=== PATIENT | female | born 1945 | race Caucasian/White ===

== ENCOUNTER → 2020-03-26 | Outpatient (CLI) | payer MEDICARE ==
[~2020-03-26] MED LIST: OMNIPAQUE 350 MG/ML, 100ML BOTTLE ONE
== END | disposition home or self-care (01) ==
LOC: CFH 12:55
PROVIDERS: ATTEND Family Medicine
DX: Z12.31 Encounter for screening mammogram for malignant neoplasm of breast (principal); K43.5 Parastomal hernia without obstruction or gangrene; N85.8 Other specified noninflammatory disorders of uterus; K56.600 Partial intestinal obstruction, unspecified as to cause; M47.816 Spondylosis without myelopathy or radiculopathy, lumbar region; Z93.3 Colostomy status
CPT/HCPCS: 74177; 77063; 77067; 82565; Q9967

== ENCOUNTER 2020-10-08 07:53 | Inpatient (IN) | payer MEDICARE ==
[~2020-10-08] VITALS: Ht 167.6 cm; Wt 106.4 kg
[2020-10-08] MEDS ORDERED: SODIUM CHLORIDE FLUSH 10ML SYR IVF ONE (08:30)
[2020-10-08 08:37] LABS: BASOPHILS % (AUTO) 0 % (0-1); EOSINOPHILS % (AUTO) 2 % (1-7); LYMPHOCYTES % (AUTO) 12 % (22-44); MEAN CORPUSCULAR HEMOGLOBIN 32.6 pg (27.0-34.8); MEAN PLATELET VOLUME 8.2 fL (7.4-10.4); MONOCYTES % (AUTO) 8 % (2-9); NEUTROPHILS % (AUTO) 77 % (42-75); PLATELET COUNT 225 x10^3/uL (130-400); RED BLOOD COUNT 4.38 x10^6/uL (3.82-5.3); RED CELL DISTRIBUTION WIDTH 12.9 % (9.6-15.2)
[2020-10-08 08:49] LABS: ALANINE AMINOTRANSFERASE 20 U/L (12-78); ALBUMIN 3.6 g/dL (3.4-5.0); ANION GAP 6 mmol/L (5-15); CHLORIDE 110 mmol/L (98-107); CREATININE 0.75 mg/dL (0.55-1.02)
[2020-10-08 08:50] LABS: MD NO
[2020-10-08 08:51] LABS: ALKALINE PHOSPHATASE 109 U/L (45-117); BILIRUBIN,TOTAL 0.6 mg/dL (0.2-1.0); TOTAL PROTEIN 6.9 g/dL (6.4-8.2)
[2020-10-08] MEDS ORDERED: SERTRALINE 50MG TABLET ONE (08:53)
[2020-10-08] MEDS: SERTRALINE 50MG TABLET PO SCH (08:55)
[2020-10-08] MEDS ORDERED: OMNIPAQUE 350 MG/ML, 100ML BOTTLE ONE (09:23)
[2020-10-08] MEDS ORDERED: ONDANSETRON ODT 4 MG PO PRN (12:00)
[2020-10-08] MEDS ORDERED: ACETAMINOPHEN 325 MG TABLET PO PRN (12:00)
[2020-10-08] MEDS ORDERED: HEPARIN 5,000 UNITS/ML, 1ML SQ SCH (12:00)
[2020-10-08] MEDS ORDERED: SODIUM CHLORIDE 0.9% 1,000 ML IV SCH (12:00)
[2020-10-08] MEDS ORDERED: ONDANSETRON 2MG/ML, 2ML IVPush PRN (12:00)
[2020-10-08] MEDS ORDERED: KETOROLAC 30 MG/1 ML IM PRN (12:00)
[2020-10-08] MEDS ORDERED: CHLORHEXIDINE 15 ML UDC ONE (12:51)
[2020-10-08] MEDS ORDERED: CHLORHEXIDINE 15 ML UDC PO ONE (13:00)
[2020-10-08 13:23] LABS: INTERNATIONAL NORMALIZED RATIO 0.97 (0.93-1.1); PROTHROMBIN TIME 10.4 Seconds (9.6-11.5)
[2020-10-08] MEDS ORDERED: FENTANYL PF 100 MCG/2ML ONE ×2 (13:43→14:32)
[2020-10-08] MEDS ORDERED: OXYcodone 5 MG/5 ML ORAL.SOL UDC PO PRN (14:00)
[2020-10-08] MEDS ORDERED: hydrALAzine 20 MG/ML, 1ML IV PRN (14:00)
[2020-10-08] MEDS ORDERED: PROMETHAZINE 25 MG/ML, 1ML IVPush PRN (14:00)
[2020-10-08] MEDS ORDERED: HYDROmorphone 1 MG/ML, 1ML INJ IVPush PRN (14:00)
[2020-10-08] MEDS ORDERED: DIPHENHYDRAMINE 50 MG/ML, 1ML IVPush PRN (14:00)
[2020-10-08] MEDS ORDERED: HALOPERIDOL 5 MG/ML IV PRN (14:00)
[2020-10-08] MEDS ORDERED: LABETALOL 5MG/ML, 20ML IV PRN (14:00)
[2020-10-08] MEDS ORDERED: MEPERIDINE/PF 25MG/0.5ML IVPush PRN (14:00)
[2020-10-08] MEDS ORDERED: FENTANYL PF 100 MCG/2ML IV PRN (14:00)
[2020-10-08] MEDS ORDERED: PROPOFOL 10 MG/ML, 20ML ONE (14:51)
[2020-10-08] MEDS ORDERED: CEFAZOLIN 1,000 MG ONE (14:51)
[2020-10-08] MEDS ORDERED: NEOSTIGMINE 1 MG/ML, 10ML ONE (14:51)
[2020-10-08] MEDS ORDERED: SUCCINYLCHOLINE 20 MG/ML, 10ML ONE (14:51)
[2020-10-08] MEDS ORDERED: CEFOTETAN 2 GM ONE (14:51)
[2020-10-08] MEDS ORDERED: ONDANSETRON 2MG/ML, 2ML ONE (14:51)
[2020-10-08] MEDS ORDERED: DEXAMETHASONE 4 MG/ML, 1ML ONE (14:51)
[2020-10-08] MEDS ORDERED: ROCURONIUM 10MG/ML,5ML ONE (14:51)
[2020-10-08] MEDS ORDERED: GLYCOPYRROLATE 0.2MG/1ML, 5ML ONE (14:51)
[2020-10-08] MEDS ORDERED: ESMOLOL 100 MG/10 ML ONE ×2 (15:08)
[2020-10-08] MEDS ORDERED: ONDANSETRON 2MG/ML, 2ML IV PRN (19:30)
[2020-10-08 20:00] VITALS: BP 123/77
[2020-10-08] MEDS ORDERED: ASPI-963 PO (20:20)
[2020-10-08] MEDS ORDERED: LEVO75CA5 PO (20:20)
[2020-10-08] MEDS ORDERED: QUET25TA2 PO (20:20)
[2020-10-08] MEDS ORDERED: d3 PO (20:22)
[2020-10-08] MEDS ORDERED: [UNRECOGNIZED DRUG - OTHER] PO (20:23)
[2020-10-08] MEDS: morphine SULFATE 10 MG/ML, 1ML IV PRN ×2 (20:49→23:04)
[2020-10-08] MEDS: LACTATED RINGERS 1,000 ML IV SCH (21:31)
[2020-10-08] MEDS ORDERED: SERT-237 PO (21:47)
[2020-10-08 23:15] VITALS: BP 107/71
[2020-10-09] MEDS: morphine SULFATE 10 MG/ML, 1ML IV PRN ×6 (00:41→22:10)
[2020-10-09 02:41] VITALS: BP 123/73
[2020-10-09 05:17] LABS: BASOPHILS % (AUTO) 0 % (0-1); EOSINOPHILS % (AUTO) 0 % (1-7); LYMPHOCYTES % (AUTO) 8 % (22-44); MEAN CORPUSCULAR HEMOGLOBIN 32.7 pg (27.0-34.8); MEAN CORPUSCULAR HGB CONC 34.2 g/dL (32.4-35.8); MEAN PLATELET VOLUME 9.3 fL (7.4-10.4); MONOCYTES % (AUTO) 10 % (2-9); NEUTROPHILS % (AUTO) 82 % (42-75); PLATELET COUNT 175 x10^3/uL (130-400); RED BLOOD COUNT 3.94 x10^6/uL (3.82-5.3); RED CELL DISTRIBUTION WIDTH 12.7 % (9.6-15.2)
[2020-10-09 05:21] LABS: MD NO
[2020-10-09 05:25] LABS: ANION GAP 3 mmol/L (5-15); CALCIUM 8.4 mg/dL (8.5-10.1); CHLORIDE 107 mmol/L (98-107); CREATININE 0.62 mg/dL (0.55-1.02)
[2020-10-09] MEDS: ENOXAPARIN 40 MG/0.4 ML SQ SCH (06:19)
[2020-10-09 06:55] VITALS: BP 109/65
[2020-10-09] MEDS: LACTATED RINGERS 1,000 ML IV SCH ×2 (07:45→19:00)
[2020-10-09] MEDS: SERTRALINE 50MG TABLET PO SCH (09:52)
[2020-10-09 12:20] VITALS: BP 117/73
[2020-10-09 19:19] VITALS: BP 115/58
[2020-10-10 00:40] VITALS: BP 105/55
[2020-10-10] MEDS ORDERED: KETOROLAC 30 MG/1 ML ONE (00:43)
[2020-10-10] MEDS: KETOROLAC 30 MG/1 ML IV PRN ×2 (00:47→06:30)
[2020-10-10 06:00] LABS: FREE T4 (FREE THYROXINE) 1.26 ng/dL (0.76-1.46)
[2020-10-10] MEDS ORDERED: KETOROLAC 30 MG/1 ML IV PRN (06:00)
[2020-10-10] MEDS: ENOXAPARIN 40 MG/0.4 ML SQ SCH (06:23)
[2020-10-10 06:36] VITALS: BP 102/58
[2020-10-10] MEDS ORDERED: NORCO MC SCH (07:30)
[2020-10-10] MEDS ORDERED: HYDROcodone/APAP 5/325 TABLET PO PRN (07:30)
[2020-10-10] MEDS ORDERED: morphine SULFATE 10 MG/ML, 1ML IV PRN (08:30)
[2020-10-10] MEDS: SERTRALINE 50MG TABLET PO SCH (09:14)
[2020-10-10] MEDS: HYDROcodone/APAP 5/325 TABLET PO PRN (09:15)
[2020-10-10] MEDS: ACETAMINOPHEN 325 MG TABLET PO SCH ×3 (13:07→23:47)
[2020-10-10] MEDS: LACTATED RINGERS 1,000 ML IV SCH (13:08)
[2020-10-10 13:34] VITALS: BP 108/55
[2020-10-10 19:20] VITALS: BP 122/65
[2020-10-11 02:38] VITALS: BP 114/61
[2020-10-11] MEDS: ENOXAPARIN 40 MG/0.4 ML SQ SCH (05:14)
[2020-10-11] MEDS: ACETAMINOPHEN 325 MG TABLET PO SCH ×3 (05:14→19:40)
[2020-10-11 07:15] VITALS: BP 116/62
[2020-10-11] MEDS: SERTRALINE 50MG TABLET PO SCH (08:36)
[2020-10-11] MEDS: LACTATED RINGERS 1,000 ML IV SCH (10:50)
[2020-10-11 14:06] VITALS: BP 107/55
[2020-10-11 19:12] VITALS: BP 123/66
[2020-10-11] MEDS: HYDROcodone/APAP 5/325 TABLET PO PRN (22:28)
[2020-10-12 00:18] VITALS: BP 102/53
[2020-10-12] MEDS: ENOXAPARIN 40 MG/0.4 ML SQ SCH (05:14)
[2020-10-12] MEDS: ACETAMINOPHEN 325 MG TABLET PO SCH ×3 (05:14→13:01)
[2020-10-12 07:03] VITALS: BP 107/58
[2020-10-12] MEDS: SERTRALINE 50MG TABLET PO SCH (09:34)
[2020-10-12 12:07] VITALS: BP 126/76
[2020-10-12] MEDS ORDERED: ACET325T26 PO (14:41)
== END 2020-10-12 16:17 | disposition home health service (06) | DRG 355 ==
LOC: ED 08:52 → 4NE 11:57 → 4NW 16:07 → DCLOUNGE 10-12 16:11
PROVIDERS: ADMIT Internal Medicine; ATTEND Internal Medicine
PROC: 0WQF0ZZ Repair Abdominal Wall, Open Approach (ICD-10-PCS; principal; 2020-10-08 13:00)
DX: K43.3 Parastomal hernia with obstruction, without gangrene (principal); Z20.822 Contact with and (suspected) exposure to COVID-19; E03.9 Hypothyroidism, unspecified; E66.9 Obesity, unspecified; Z68.37 Body mass index [BMI] 37.0-37.9, adult; F41.9 Anxiety disorder, unspecified; G25.0 Essential tremor; R13.10 Dysphagia, unspecified; Z85.048 Personal history of other malignant neoplasm of rectum, rectosigmoid junction, and anus; Z90.49 Acquired absence of other specified parts of digestive tract; Z93.3 Colostomy status; R00.0 Tachycardia, unspecified; Z79.82 Long term (current) use of aspirin
CPT/HCPCS: 36415; 74177; 80048; 80053; 82330; 84439; 84443; 84481; 85025; 85610; 87635; 93005; 96372; 99285; G0378; J0690; J1100; J1650; J1885; J2405; J2704; J2710; J3010; Q9967; C1765; J0330; J2270; J7120

== ENCOUNTER → 2020-10-27 | Outpatient (CLI) | payer MEDICARE ==
[~2020-10-27] MED LIST changes: +ACET325T26 PO; +ASPI-963 PO; +LEVO75CA5 PO; -OMNIPAQUE 350 MG/ML, 100ML BOTTLE ONE; +QUET25TA2 PO; +SERT-237 PO; +[UNRECOGNIZED DRUG - OTHER] PO; +d3 PO
== END | disposition home or self-care (01) ==
LOC: CFH 08:33 → EDSTATUS 09:00
PROVIDERS: ATTEND Surgery
DX: K82.4 Cholesterolosis of gallbladder (principal); R10.9 Unspecified abdominal pain
CPT/HCPCS: 76700

== ENCOUNTER 2020-11-12 12:38 | Outpatient (CLI) | payer MEDICARE ==
[~2020-11-12 12:38] MED LIST changes: -QUET25TA2 PO; +QUET25TA3 PO
== END 2020-11-12 23:59 | disposition home or self-care (01) ==
LOC: WOUND 12:38
PROVIDERS: ATTEND Internal Medicine
DX: T81.31XA Disruption of external operation (surgical) wound, not elsewhere classified, initial encounter (principal); L03.311 Cellulitis of abdominal wall; F41.9 Anxiety disorder, unspecified; E03.9 Hypothyroidism, unspecified; I10 Essential (primary) hypertension; Z93.3 Colostomy status; Z85.048 Personal history of other malignant neoplasm of rectum, rectosigmoid junction, and anus; Z79.82 Long term (current) use of aspirin; Z90.49 Acquired absence of other specified parts of digestive tract; Z20.822 Contact with and (suspected) exposure to COVID-19; Y92.238 Other place in hospital as the place of occurrence of the external cause; Y83.8 Other surgical procedures as the cause of abnormal reaction of the patient, or of later complication, without mention of misadventure at the time of the procedure
CPT/HCPCS: 97597; G0463

== ENCOUNTER → 2020-11-19 | Outpatient (CLI) | payer MEDICARE ==
[~2020-11-19] MED LIST changes: +QUET25TA2 PO; -QUET25TA3 PO
== END | disposition home or self-care (01) ==
LOC: WOUND 10:06
PROVIDERS: ATTEND Internal Medicine Cardiovascular Disease
DX: T81.89XD Other complications of procedures, not elsewhere classified, subsequent encounter (principal); L03.311 Cellulitis of abdominal wall; F41.9 Anxiety disorder, unspecified; E03.9 Hypothyroidism, unspecified; I10 Essential (primary) hypertension; E66.9 Obesity, unspecified; Z68.32 Body mass index [BMI] 32.0-32.9, adult; Z93.3 Colostomy status; Z85.048 Personal history of other malignant neoplasm of rectum, rectosigmoid junction, and anus; Z90.49 Acquired absence of other specified parts of digestive tract; Z20.822 Contact with and (suspected) exposure to COVID-19; Z79.82 Long term (current) use of aspirin; Y83.8 Other surgical procedures as the cause of abnormal reaction of the patient, or of later complication, without mention of misadventure at the time of the procedure
CPT/HCPCS: G0463

== ENCOUNTER 2020-11-26 12:59 | Outpatient (CLI) | payer MEDICARE ==
[~2020-11-26 12:59] MED LIST changes: -QUET25TA2 PO; +QUET25TA3 PO
== END 2020-11-26 23:59 | disposition home or self-care (01) ==
LOC: WOUND 12:59
PROVIDERS: ATTEND Internal Medicine
DX: T81.31XD Disruption of external operation (surgical) wound, not elsewhere classified, subsequent encounter (principal); L03.311 Cellulitis of abdominal wall; F41.9 Anxiety disorder, unspecified; E03.9 Hypothyroidism, unspecified; I10 Essential (primary) hypertension; F32.9 Major depressive disorder, single episode, unspecified; E66.9 Obesity, unspecified; Z68.32 Body mass index [BMI] 32.0-32.9, adult; Z93.3 Colostomy status; Z85.048 Personal history of other malignant neoplasm of rectum, rectosigmoid junction, and anus; Z90.49 Acquired absence of other specified parts of digestive tract; Z20.822 Contact with and (suspected) exposure to COVID-19; Z79.82 Long term (current) use of aspirin; Y83.8 Other surgical procedures as the cause of abnormal reaction of the patient, or of later complication, without mention of misadventure at the time of the procedure
CPT/HCPCS: 87070; 87205; 97597

== ENCOUNTER → 2020-12-03 | Outpatient (CLI) | payer MEDICARE ==
[~2020-12-03] MED LIST changes: +QUET25TA2 PO; -QUET25TA3 PO
== END | disposition home or self-care (01) ==
LOC: WOUND 09:55
PROVIDERS: ATTEND Internal Medicine
DX: T81.31XD Disruption of external operation (surgical) wound, not elsewhere classified, subsequent encounter (principal); L03.311 Cellulitis of abdominal wall; F41.9 Anxiety disorder, unspecified; E03.9 Hypothyroidism, unspecified; I10 Essential (primary) hypertension; E66.9 Obesity, unspecified; Z68.32 Body mass index [BMI] 32.0-32.9, adult; Z93.3 Colostomy status; Z85.048 Personal history of other malignant neoplasm of rectum, rectosigmoid junction, and anus; Z90.49 Acquired absence of other specified parts of digestive tract; Z20.822 Contact with and (suspected) exposure to COVID-19; Z79.82 Long term (current) use of aspirin; Y83.8 Other surgical procedures as the cause of abnormal reaction of the patient, or of later complication, without mention of misadventure at the time of the procedure
CPT/HCPCS: 97597

== ENCOUNTER 2020-12-17 08:09 | Outpatient (CLI) | payer MEDICARE | END 2020-12-17 23:59 | disposition home or self-care (01) | LOC: WOUND 08:09 | PROVIDERS: ATTEND Internal Medicine | DX: L03.311 Cellulitis of abdominal wall (principal); F41.9 Anxiety disorder, unspecified; E03.9 Hypothyroidism, unspecified; I10 Essential (primary) hypertension; E66.9 Obesity, unspecified; Z68.32 Body mass index [BMI] 32.0-32.9, adult; Z93.3 Colostomy status; Z85.048 Personal history of other malignant neoplasm of rectum, rectosigmoid junction, and anus; Z90.49 Acquired absence of other specified parts of digestive tract; Z20.822 Contact with and (suspected) exposure to COVID-19; Z79.82 Long term (current) use of aspirin | CPT/HCPCS: G0463 ==